=== PATIENT | female | born 1995 | race Caucasian/White ===

== ENCOUNTER 2017-09-19 08:56 | Emergency (ER) | payer OTHER ==
[2017-09-19 09:32] VITALS: BP 117/66
--- NOTE | 2017-09-19 09:40 | ED ---
Throat Pain/Nasal Congestion - HPI Summary HPI Summary: 22 yr old female with lower eyelid irritation, and mild swelling, itching for 2 days. No pain in the eyes. No blur vision. No other complaints. - History of Current Complaint Chief Complaint: UCSkin Time Seen by Provider: 09/19/17 09:31 - Allergies/Home Medications Allergies/Adverse Reactions: Allergies Allergy/AdvReac Type Severity Reaction Status Date / Time latex Allergy Hives Verified 09/19/17 09:30 Home Medications: Home Medications Aspirin/Acetaminophen/Caffeine [Excedrin Migraine Caplet] 2 each PO DAILY [History Confirmed 09/19/17] PMH/Surg Hx/FS Hx/Imm Hx Endocrine/Hematology History: Denies: Hx Diabetes, Hx Thyroid Disease Cardiovascular History: Denies: Hx Hypertension Respiratory History: Denies: Hx Asthma, Hx Chronic Obstructive Pulmonary Disease (COPD) GI History: Denies: Hx Ulcer - Surgical History Surgery Procedure, Year, and Place: skin infection/staph infection as a child Infectious Disease History: No Infectious Disease History: Reports: Hx of Known/Suspected MRSA - [facility] 1996 Denies: Hx Hepatitis, Hx Human Immunodeficiency Virus (HIV), Hx Tuberculosis , Traveled Outside the [place] in Last 30 Days - Family History Known Family History: Positive: Cardiac Disease, Hypertension - Social History Alcohol Use: Occasionally Substance Use Type: Reports: None Smoking Status (MU): Former Smoker Review of Systems Constitutional: Negative Positive: Erythema, Other - itchy eye All Other Systems Reviewed And Are Negative: Yes Physical Exam Triage Information Reviewed: Yes Vital Signs On Initial Exam: Initial Vitals Temp Pulse Resp BP Pulse Ox 98.8 F 61 15 117/66 100 09/19/17 09:25 09/19/17 09:25 09/19/17 09:25 09/19/17 09:25 09/19/17 09:25 Vital Signs Reviewed: Yes Appearance: Positive: Well-Appearing, No Pain Distress Skin: Positive: Warm, Skin Color Reflects Adequate Perfusion Head/Face: Positive: Normal Head/Face Inspection Eyes: Positive: EOMI, SANTHOSH, Conjunctiva Inflammed - bilateral eyes, left lower eyelid with some minor edema. No stye. ENT: Positive: Normal ENT inspection Neck: Positive: Nontender Respiratory/Lung Sounds: Positive: Clear to Auscultation, Breath Sounds Present Cardiovascular: Positive: RRR. Negative: Murmur Abdomen Description: Positive: Nontender Musculoskeletal: Positive: Strength/ROM Intact Neurological: Positive: Sensory/Motor Intact, Alert, Oriented to Person Place, Time, CN Intact II-III - [place] Coma Scale Best Eye Response: 4 - Spontaneous Best Motor Response: 6 - Obeys Commands Best Verbal Response: 5 - Oriented Coma Scale Total: 15 Diagnostics - Vital Signs Vital Signs Temp Pulse Resp BP Pulse Ox 09/19/17 09:25 98.8 F 61 15 117/66 100 - Laboratory Lab Statement: Any lab studies that have been ordered have been reviewed, and results considered in the medical decision making process. EENT Course/Dx - Course Course Of Treatment: 22 yr old with conjuntivitis, sulfa eye drops, note for work. - Diagnoses Provider Diagnoses: Conjunctivitis Discharge - Sign-Out/Discharge Documenting (check all that apply): Discharge/Admit/Transfer - Discharge Plan Condition: Good Disposition: HOME Prescriptions: Sulfacetamide 10 % OPTH.YAKOV* [Sulamyd 10% Opth*] 1 drop BOTH EYES Q4H #1 btl Patient Education Materials: Conjunctivitis (ED) Forms: *Work Release Referrals: Jody Eric [Primary Care Provider] - 2 Days - Billing Disposition and Condition Condition: GOOD Disposition: Home
== END 2017-09-19 09:44 | disposition home or self-care (01) ==
LOC: UCCORT 08:56
DX: H10.9 Unspecified conjunctivitis (principal); Z87.891 Personal history of nicotine dependence
CPT/HCPCS: 99212; G0463

== ENCOUNTER 2017-09-21 12:59 | Emergency (ER) | payer OTHER ==
[2017-09-21 14:08] VITALS: BP 109/61
--- NOTE | 2017-09-21 15:01 | UC ---
Eye Complaint HPI - HPI Summary HPI Summary: 22 y/o female presents to the urgent care c/o left eye painful w/ a red area in the lower eyelid since yesterday. Pt reports she was seen here at the clinic 2 days ago an Dx w/ B/L bacterial conjunctivitis and Rx ophthalmic drops which are not improving her symptoms. B/L eye redness resolved. But now she has this painful swelling in her left lower eyelid. Pain is 6/10 at touch, No photophobia, visual disturbance, fever, eye discharge, SHARP, SOB, chest pain, abdominal pain, N/V/D - History of Current Complaint Chief Complaint: UCEye Stated Complaint: RE-CHECK LEFT EYE Time Seen by Provider: 09/21/17 15:00 Hx Obtained From: Patient Hx Last Menstrual Period: 09/13/17 ?: No Onset/Duration: Gradual Onset, Lasting Days - 1 day, Still Present, Worse Since - today Timing: Constant Severity Initially: Mild Severity Currently: Mild Pain Intensity: 6 Pain Scale Used: 0-10 Numeric Location of Injury: Eye Lid (lower) - left swollen and painfull Character: Dull Aggravating Factor(s): Blinking Alleviating Factor(s): Nothing Associated Signs And Symptoms: Positive: Drainage (Purulent), Swelling. Negative: Photophobia, Drainage (Clear), Vision Impairment Bilateral, Fever - Risk Factors Penetrating Injury Risk Factor: Negative Globe Rupture Risk Factors: Negative Acute Glaucoma Risk Factors: Negative Optic Artery Occlusion Risk Factors: Negative - Allergies/Home Medications Allergies/Adverse Reactions: Allergies Allergy/AdvReac Type Severity Reaction Status Date / Time latex Allergy Hives Verified 09/21/17 14:08 PMH/Surg Hx/FS Hx/Imm Hx Previously Healthy: Yes - Pt denies PMHX - Surgical History Surgical History: Yes Surgery Procedure, Year, and Place: skin infection/staph infection as a child - Family History Known Family History: Positive: Cardiac Disease, Hypertension, Diabetes Family History: Breast cancer, esophageal cancer - Social History Occupation: Employed Part-time, Student Lives: With Family Alcohol Use: Occasionally Substance Use Type: None Smoking Status (MU): Former Smoker - Immunization History Most Recent Influenza Vaccination: none Vaccination Up to Date: Yes Review of Systems Constitutional: Negative Skin: Negative Eyes: Other - left lower eyelid red , swollen and painful ENT: Negative Respiratory: Negative Cardiovascular: Negative Gastrointestinal: Negative Genitourinary: Negative Motor: Negative Neurovascular: Negative Musculoskeletal: Negative Neurological: Negative Psychological: Negative Is Patient Immunocompromised?: No All Other Systems Reviewed And Are Negative: Yes Physical Exam - Summary Physical Exam Summary: Vital Signs Reviewed: Yes General: Well appearing, well nourished adolescent female in no apparent pain distress Eyes: Positive: B/L Conjunctiva clear - Visual acuity: WNL,Visual viveros: full to confrontation.mild periorbital soft tissue swelling at the LF lower eyelid with erythema and white small internal pustule in the medial side of eyelid, tender to palpation. PERRLA, EOMI intact w/out limitation or complaint of pain. eyelashes clear. mild tearing and yellowish drainage observed. No ciliary flush. No chemosis, No photophobia. Normal fundoscopic exam; no proptosis, exophthalmos, nystagmus. ENT: Positive: Normal ENT inspection, Hearing grossly normal, Pharynx normal, Nasal congestion, Nasal drainage - clear, TMs normal - B/L external ear canal clear , TM's WNL. Negative: Tonsillar swelling, Tonsillar exudate Neck: Positive: Supple, Nontender, No Lymphadenopathy Respiratory: Positive: Chest nontender, Lungs clear, Normal breath sounds, No respiratory distress Cardiovascular: Positive: RRR, No Murmur, Pulses Normal, Brisk Capillary Refill Abdomen Description: Positive: Nontender, No Organomegaly, Soft. Negative: CVA Tenderness (R), CVA Tenderness (L) Bowel Sounds: Positive: Present Musculoskeletal: Positive: Strength Intact, ROM Intact, No Edema Neurological Exam: Normal Psychological Exam: Normal Skin Exam: Normal Triage Information Reviewed: Yes Vital Signs: Initial Vital Signs Temp 99.0 F 09/21/17 14:05 Pulse 60 09/21/17 14:05 Resp 20 09/21/17 14:05 BP 109/61 09/21/17 14:05 Pulse Ox 100 09/21/17 14:05 Eye Complaint Course/Dx - Course Course Of Treatment: 22 y/o female presents to the urgent care c/o left eye painful w/ a red area in the lower eyelid since yesterday. Pt reports she was seen here at the clinic 2 days ago an Dx w/ B/L bacterial conjunctivitis and Rx ophthalmic drops which are not improving her symptoms. B/L eye redness resolved. But now she has this painful swelling in her left lower eyelid. Pain is 6/10 at touch, No photophobia, visual disturbance, fever, eye discharge, SHARP, SOB, chest pain, abdominal pain, N/V/D. Hx obtained. PT w/mild periorbital soft tissue swelling at the LF lower eyelid with erythema and white small internal pustule in the medial side of eyelid, tender to palpation on examination. Pt with a LF lower eyelid internal hordeolum on examination. Pt Rx Erytromycin Ophthalmic Ointment. PT advised to apply warm compresses and massage the eye with gentle pressure 4-5 times for 10-15min throughout the day. Then apply ABX and if not improvement of symptoms to f/u with inventory control manager or PCP for further evaluation and treatment. PT understood and agreed with plan of care. - Differential Dx/Diagnosis Differential Diagnosis/HQI/PQRI: Conjunctivitis, Corneal Abrasion, Periorbital Cellulitis, Uveitis, Other - Provider Diagnoses: 1- Left lower yelid internal hordeolum Discharge - Sign-Out/Discharge Documenting (check all that apply): Discharge/Admit/Transfer - D/C home - Discharge Plan Condition: Stable Disposition: HOME Prescriptions: Erythromycin OPTH OINT* [Erythromycin 0.5% OPTH OINT*] 1 applic LEFT EYE TID #1 ophth.oint Patient Education Materials: Ashlee (ED) Forms: *Work Release Referrals: Jody Eric [Primary Care Provider] - 2 Days Beth KIRK,Sanigta [Medical Doctor] - 2 Days Additional Instructions: 1-Please apply ophthalmic ointment in your left eye as directed. Please apply warm compresses and massage the eye with gentle pressure 4-5 times for 10-15min throughout the day. Encourage hand washing 2- If you do not improve or if symptoms worsen please f/u with inventory control manager Dr Campos 2-3 days for further evaluation and treatment - Billing Disposition and Condition Condition: STABLE Disposition: Home
== END 2017-09-21 15:23 | disposition home or self-care (01) ==
LOC: UCCORT 12:59
DX: H00.025 Hordeolum internum left lower eyelid (principal); Z87.891 Personal history of nicotine dependence
CPT/HCPCS: 99212; G0463

== ENCOUNTER 2018-01-01 17:14 | Emergency (ER) | payer OTHER ==
[2018-01-01 18:23] VITALS: BP 113/64
--- NOTE | 2018-01-01 18:45 | UC ---
UC General HPI - HPI Summary HPI Summary: Patient c/o neck pain which radiates to right sided upper back and shoulder on and off of the past year. She states it started to flare up again this week. States she has occasional numbness on right arm after sleeping but denies tingling or numbness now. Unsure of any initial traumas that would have caused back/shoulder pain a year ago. LMD 2 weeks ago. - History of Current Complaint Chief Complaint: UCBackPain Stated Complaint: BACK, NECK AND SHOULDER PAIN Time Seen by Provider: 01/01/18 18:39 Hx Obtained From: Family/Portfolio Manager Hx Last Menstrual Period: 12/25/17 Onset/Duration: Gradual Onset, Lasting Weeks Onset Severity: Mild Current Severity: Moderate Pain Intensity: 6 - Allergy/Home Medications Allergies/Adverse Reactions: Allergies Allergy/AdvReac Type Severity Reaction Status Date / Time latex Allergy Hives Verified 01/01/18 18:17 Home Medications: Home Medications Acetaminophen [Tylenol Arthritis] 1,300 mg PO ONCE 01/01/18 [History Confirmed 01/01/18] Naproxen Sodium [Aleve] 440 mg PO ONCE 01/01/18 [History Confirmed 01/01/18] PMH/Surg Hx/FS Hx/Imm Hx Previously Healthy: Yes - Surgical History Surgical History: Yes Surgery Procedure, Year, and Place: skin infection/staph infection as a child. wisdom teeth. bunionectomy (left foot) - Family History Known Family History: Positive: Cardiac Disease, Hypertension, Diabetes Family History: Breast cancer, esophageal cancer - Social History Alcohol Use: None Substance Use Type: None Smoking Status (MU): Former Smoker - Immunization History Most Recent Influenza Vaccination: none Vaccination Up to Date: Yes Review of Systems Constitutional: Negative Musculoskeletal: Arthralgia, Myalgia All Other Systems Reviewed And Are Negative: Yes Physical Exam Triage Information Reviewed: Yes Appearance: Well-Appearing, No Pain Distress, Well-Nourished Vital Signs: Initial Vital Signs Temp 98.4 F 01/01/18 18:16 Pulse 60 01/01/18 18:16 Resp 16 01/01/18 18:16 BP 113/64 01/01/18 18:16 Pulse Ox 100 01/01/18 18:16 Vital Signs Reviewed: Yes Eyes: Positive: Conjunctiva Clear ENT: Positive: Hearing grossly normal Neck: Positive: Supple, Nontender, No Lymphadenopathy, Other: - FROM. Spurling negative Respiratory: Positive: Chest non-tender, Lungs clear, Normal breath sounds, No respiratory distress Cardiovascular: Positive: RRR, No Murmur, Pulses Normal, Brisk Capillary Refill Abdomen Description: Positive: Nontender Musculoskeletal: Positive: Strength Intact, ROM Intact, No Edema, Other: - UE testing wnl. Moyer negative, impingement negative, sensory intact Neurological: Positive: Alert, Muscle Tone Normal Skin Exam: Normal Course/Dx - Course Course Of Treatment: Patient's - Differential Dx - Multi-Symptom Provider Diagnoses: cervicalgia Discharge - Sign-Out/Discharge Documenting (check all that apply): Patient Departure All imaging exams completed and their final reports reviewed: No - Discharge Plan Condition: Stable Disposition: HOME Patient Education Materials: Neck Pain (ED), Tizanidine (By mouth), Naproxen ( By mouth) Referrals: Jody Eric [Primary Care Provider] - - Billing Disposition and Condition Condition: STABLE Disposition: Home
--- NOTE | 2018-01-01 21:42 | RAD ---
EXAM: XR Cervical Spine, 2 or 3 Views CLINICAL HISTORY: 22 years old, female; Pain; Neck pain; Additional info: Neck pain radiating to right shoulder TECHNIQUE: Frontal and lateral views of the cervical spine. COMPARISON: No relevant prior studies available. FINDINGS: Vertebrae: Reversal of the normal cervical lordosis can be seen with soft tissue injury and muscle spasm. No definite fracture. Normal alignment. Disc spaces: No acute findings. No significant narrowing. Soft tissues: Unremarkable. IMPRESSION: 1. No acute fracture, subluxation, or aggressive osseous lesion.
--- NOTE | 2018-01-02 09:30 | ED ---
Progress - Progress Note Progress Note: final report xray c spine reviewed, and no acute findings. Course/Dx - Course Course Of Treatment: Patient's Discharge - Sign-Out/Discharge Documenting (check all that apply): Patient Departure All imaging exams completed and their final reports reviewed: Yes - Discharge Plan Condition: Stable Disposition: HOME Prescriptions: Naproxen [Naproxen 500 mg tab] 500 mg PO BID PRN #30 tablet PRN Reason: Pain tiZANidine TAB* [Zanaflex TAB*] 2 mg PO TID PRN #30 tab PRN Reason: Pain Patient Education Materials: Naproxen (By mouth), Tizanidine (By mouth), Cervical Strain (ED), Neck Pain (ED) Referrals: Jody Eric [Primary Care Provider] - Additional Instructions: please return to your primary care for follow up of neck pain You have been referred to Physical Therapy, please make an appointment The medication prescribed is to alleviate pain as needed. - Billing Disposition and Condition Condition: STABLE Disposition: Home
== END 2018-01-01 20:35 | disposition home or self-care (01) ==
LOC: UCCORT 17:14
CPT/HCPCS: 72040; 99212; G0463

== ENCOUNTER 2018-11-13 14:14 | Emergency (ER) | payer OTHER ==
[2018-11-13 14:37] VITALS: BP 114/69
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
== END 2018-11-13 15:25 | disposition home or self-care (01) ==
LOC: UCCORT 14:14
DX: S61.452A Open bite of left hand, initial encounter (principal); W54.0XXA Bitten by dog, initial encounter; Y92.9 Unspecified place or not applicable; Z86.14 Personal history of Methicillin resistant Staphylococcus aureus infection
CPT/HCPCS: 99212; G0463

== ENCOUNTER 2018-12-19 20:27 | Emergency (ER) | payer OTHER ==
[2018-12-19 20:46] VITALS: BP 133/84
--- NOTE | 2018-12-19 21:27 | UC ---
UC General HPI - HPI Summary HPI Summary: pt is c/o being unable to eat (on most days) without having nausea and vomiting that occurs following the food intake. this has been going on for about 1 year. today, she reports feeling weak and dizzy as well. pt reports that she will get tunnel vision and shaky at times due to low blood sugar which improves with fruit. she has a long hx of GERD and FMH of GERD as well. She denies abdominal pain and IBD. she reports a 10-20# weight loss over the past year. she weight today is 49.89 kg and was 49.4kg on 01/01/18. she has had no black stool or fainting. pt admits to smoking marijuana most days and rejects any suggestion that this may cause N/V'ing. when asked if she has discussed the n/ving with here pcp pt states "they just blow it off". when I ask if she has gotten a GI referral, pt states "I've got so many referrals and don't have any time to go to them". - History of Current Complaint Chief Complaint: UCGeneralIllness Stated Complaint: VOMITTING,DIZZINESS,OCCASIONAL SHAKY,SWEATY Time Seen by Provider: 12/19/18 20:44 Hx Obtained From: Patient Hx Last Menstrual Period: now Pain Intensity: 0 - Allergy/Home Medications Allergies/Adverse Reactions: Allergies Allergy/AdvReac Type Severity Reaction Status Date / Time latex Allergy Hives Verified 12/19/18 20:46 Home Medications: Home Medications Bismuth Subsalicylate [Pepto-Bismol] 262 mg PO DAILY PRN 12/19/18 [History Confirmed 12/19/18] PMH/Surg Hx/FS Hx/Imm Hx - Additional Past Medical History Additional PMH: N/V GI/ History: Gastroesophageal Reflux - Surgical History Surgical History: Yes Surgery Procedure, Year, and Place: skin infection/staph infection as a child. wisdom teeth. bunionectomy (left foot) - Family History Known Family History: Positive: Cardiac Disease, Hypertension, Diabetes Family History: Breast cancer, esophageal cancer - Social History Occupation: Employed Full-time Alcohol Use: Weekly Substance Use Type: None Smoking Status (MU): Never Smoked Tobacco - Immunization History Most Recent Influenza Vaccination: none Most Recent Tetanus Shot: ~ Vaccination Up to Date: Yes Review of Systems All Other Systems Reviewed And Are Negative: Yes Constitutional: Positive: Fatigue. Negative: Fever, Chills Eyes: Negative: Eye Redness ENT: Negative: Sore Throat, Ear Ache, Sinus Congestion Respiratory: Negative: Shortness Of Breath, Cough Cardiovascular: Negative: Palpitations, Chest Pain Gastrointestinal: Positive: Vomiting, Nausea. Negative: Abdominal Pain, Diarrhea Genitourinary: Negative: Dysuria Motor: Positive: Weakness - generalized Physical Exam Triage Information Reviewed: Yes Appearance: Well-Appearing, Thin Vital Signs: Initial Vital Signs Temp 98.2 F 12/19/18 20:36 Pulse 62 12/19/18 20:36 Resp 18 12/19/18 20:36 BP 133/84 12/19/18 20:36 Pulse Ox 100 12/19/18 20:36 Vital Signs Reviewed: Yes Eyes: Positive: Conjunctiva Clear ENT: Positive: Pharynx normal, TMs normal. Negative: Nasal congestion, Nasal drainage Neck: Positive: Supple, Nontender, No Lymphadenopathy Respiratory: Positive: Lungs clear, Normal breath sounds, No respiratory distress Cardiovascular: Positive: RRR, No Murmur Abdomen Description: Positive: Nontender, No Organomegaly, Soft Bowel Sounds: Positive: Present Musculoskeletal: Positive: ROM Intact Neurological: Positive: Alert Psychological: Positive: Age Appropriate Behavior Skin Exam: Normal Course/Dx - Differential Dx - Multi-Symptom Differential Diagnoses: Other - hx suggests GERD which I will tx with prilosec. weigth from today is unchanged from 01/01/18. pt attributes that to her weight fluctuating and still notes an acute weight loss. pt's marijuana use could cause n/v thus a drug holiday has been suggested; however, pt is unhappy with this suggestion. will refer to GI as well. she is not toxic and has no acute abdomen plus no vomiting here thus ER transfer not indicated. - Diagnoses Provider Diagnosis: Nausea & vomiting, GERD (gastroesophageal reflux disease) Discharge ED - Sign-Out/Discharge Documenting (check all that apply): Patient Departure All imaging exams completed and their final reports reviewed: No Studies - Discharge Plan Condition: Stable Disposition: HOME Prescriptions: Omeprazole CAP (NF) [Prilosec CAP* 20 MG] 20 mg PO DAILY 30 Days #30 Patient Education Materials: Gastroesophageal Reflux Disease (ED), Cyclic Vomiting Syndrome (ED) Forms: *Work Release Referrals: Quinten Barr MD [Medical Doctor] - As Soon As Possible Additional Instructions: CONSIDER A HOLIDAY FROM SMOKING MARIJUANA FOR 2-3 DAYS TO SEE IF THE NAUSEA AND VOMITING IMPROVES. - Billing Disposition and Condition Condition: STABLE Disposition: Home
== END 2018-12-19 21:33 | disposition home or self-care (01) ==
LOC: UCCORT 20:27
DX: R11.2 Nausea with vomiting, unspecified (principal); K21.9 Gastro-esophageal reflux disease without esophagitis
CPT/HCPCS: 81003; 99212; G0463

== ENCOUNTER 2019-01-20 15:09 | Emergency (ER) | payer OTHER ==
--- NOTE | 2019-01-20 15:22 | UC ---
General HPI - HPI Summary HPI Summary: Per pt. she's had extreme fatigue and decreased appetite for approx 1-3 mo intermittently. She sometimes vomits since this past week after eating. denies purging. here w/ mother. denies any ilicit drug use or recent trauma. has never had a therapist. has never used ssri. started ssri for first time 4 days ago along w/ hydroxyzine. - History of Current Complaint Chief Complaint: UCGeneralIllness Stated Complaint: FATIGUE, LOSS OF APPETITE Time Seen by Provider: 01/20/19 15:21 Hx Obtained From: Patient, Family/Joint Yarner Hx Last Menstrual Period: now Onset/Duration: Gradual Onset Aggravating: nothing. Alleviating: nothing. Associated Signs & Symptoms: Negative: Agitation, SOB, Trauma - Allergy/Home Medications Allergies/Adverse Reactions: Allergies Allergy/AdvReac Type Severity Reaction Status Date / Time latex Allergy Hives Verified 01/20/19 15:30 Home Medications: Home Medications Escitalopram * [Lexapro *] 10 mg PO DAILY 01/20/19 [History Confirmed 01/20/19] hydrOXYzine HCL TAB* [Atarax 10 MG TAB*] 10 mg PO TID PRN 01/20/19 [History Confirmed 01/20/19] PMH/Surg Hx/FS Hx/Imm Hx Previously Healthy: Yes Psychological History: Depression - Surgical History Surgical History: Yes Surgery Procedure, Year, and Place: skin infection/staph infection as a child. wisdom teeth. bunionectomy (left foot) - Family History Known Family History: Positive: Cardiac Disease, Hypertension, Diabetes Family History: Breast cancer, esophageal cancer - Social History Alcohol Use: Weekly Substance Use Type: None Smoking Status (MU): Never Smoked Tobacco - Immunization History Most Recent Influenza Vaccination: none Most Recent Tetanus Shot: ~ Vaccination Up to Date: Yes Review of Systems All Other Systems Reviewed And Are Negative: Yes Constitutional: Positive: Fatigue, Other - decr. appetite.. Negative: Fever Respiratory: Positive: Negative Cardiovascular: Positive: Negative Gastrointestinal: Positive: Vomiting. Negative: Abdominal Pain, Diarrhea, Nausea Neurological: Negative: Headache Psychological: Positive: Depressed. Negative: Anxious Physical Exam Triage Information Reviewed: Yes Appearance: Well-Appearing Vital Signs Reviewed: Yes Eyes: Positive: Conjunctiva Clear ENT: Positive: Pharynx normal, TMs normal Neck: Positive: Supple, Nontender, No Lymphadenopathy Respiratory Exam: Normal Cardiovascular Exam: Normal Neurological: Positive: Alert, Other: - psychomotor retardation Psychological: Positive: Normal Response To Family, Age Appropriate Behavior Skin: Negative: Rashes Course/Dx - Course Course Of Treatment: Long standing decr. appetite w/ fatigue and on day 4 of Lexapro and Hydroxyzine. Most recent tsh, cbc normal reviewed in her old records. Urine hcg neg,UA unremarkable. vitals are good and exam unremarkable. I suspect these are symptoms of her depression and have asked her to give the medication time to work. She has upcoming appt 02/09 which is good to ensure the medications she is on do not have to be adjusted. - Differential Dx - Multi-Symptom Differential Diagnoses: Other - Diagnoses Provider Diagnosis: Fatigue, Decreased appetite Discharge ED - Sign-Out/Discharge Documenting (check all that apply): Patient Departure All imaging exams completed and their final reports reviewed: No Studies - Discharge Plan Condition: Good Disposition: HOME Patient Education Materials: Fatigue (ED) Forms: *Work Release Referrals: Jody Eric [Primary Care Provider] - Additional Instructions: I suspect your symptoms are from the chronic clinical depression. This will take time to adjust and the medications will start helping in a few more weeks. - Billing Disposition and Condition Condition: GOOD Disposition: Home
[2019-01-20 15:30] VITALS: BP 109/67
== END 2019-01-20 16:36 | disposition home or self-care (01) ==
LOC: UCCORT 15:09
DX: R53.83 Other fatigue (principal); R63.0 Anorexia; R11.10 Vomiting, unspecified; F32.9 Major depressive disorder, single episode, unspecified; Z79.899 Other long term (current) drug therapy; Z91.040 Latex allergy status
CPT/HCPCS: 81003; 84702; 99211; G0463